=== PATIENT | female | born 1955 | race Caucasian/White ===

== ENCOUNTER 2017-03-29 12:47 | Outpatient (CLI) | payer OTHER ==
--- NOTE | 2017-03-29 15:43 | Diagnostic Imaging Report ---
BERNADETTE UNDERWOOD [facility] [address] [address] Report Submission Date: Mar 29, 2017 2:06:06 PM CDT Patient Study Name: FELECIA AUGUSTIN Date: Mar 29, 2017 12:55:17 PM CDT Modality Type: CR Gender: F Description: SPINE : 51 Institution: [facility] Physician: BERNADETTE UNDERWOOD Examination: Plain film thoracic spine History: Back discomfort Findings: 3 views of the thoracic spine demonstrate normal height. Disc space narrowing involving the mid thoracic region associated with mild kyphosis and curvature. No compression deformity. No prevertebral abnormality. Impression: Mid thoracic degenerative changes. No compression deformity. Electronically signed on Mar 29, 2017 2:06:06 PM CDT by: Bryon TYSON
--- NOTE | 2017-03-29 15:44 | Diagnostic Imaging Report ---
BERNADETTE UNDERWOOD [facility] [address] [facility].[address] [address] Report Submission Date: Mar 29, 2017 2:04:27 PM CDT Patient Study Name: FELECIA AUGUSTIN Date: Mar 29, 2017 12:58:40 PM CDT Modality Type: CR Gender: F Description: SPINE : 51 Institution: [facility] Physician: BERNADETTE UNDERWOOD Examination: Plain film lumbar spine History: Back discomfort Comparison exam: 13 April 2010 Findings: 3 views of the lumbar spine demonstrate normal height and alignment. No anterior compression. Minimal curvature to the right on the anterior posterior film. No disc space narrowing. Minimal atherosclerotic disease involving the aorta and iliac vessels. Impression: Minimal degenerative changes. No fracture. Electronically signed on Mar 29, 2017 2:04:27 PM CDT by: Bryon TYSON
== END 2017-03-29 12:50 ==
LOC: RAD 12:47
PROVIDERS: ATTEND Family Medicine
DX: M54.6 Pain in thoracic spine (principal); M54.5 Low back pain
CPT/HCPCS: 72072; 72100

== ENCOUNTER 2018-01-07 13:25 | Outpatient (CLI) | payer OTHER ==
[2018-01-07 13:42] LABS: BASOPHILS % 0.6 (0.0-1.5); EOSINOPHILS % 1.8 % (0.0-6.8); MEAN CORPUSCULAR HEMOGLOBIN 33.1 pg (28.0-34.0); MEAN CORPUSCULAR VOLUME 99.5 fl (80.0-100.0); MONOCYTES % 5.8 % (0.0-11.0); NEUTROPHILS # 5.7 # k/uL (1.4-7.7)
[2018-01-07 14:03] LABS: eGFR (African) > 60; eGFR (Non-African) > 60
[2018-01-08 11:23] VITALS: BP 127/53
== END 2018-01-07 13:26 ==
LOC: LAB 13:25
PROVIDERS: ATTEND Family Medicine
DX: R11.2 Nausea with vomiting, unspecified (principal); R19.7 Diarrhea, unspecified
CPT/HCPCS: 36415; 80053; 85025

== ENCOUNTER 2018-01-08 10:00 | Outpatient (CLI) | payer OTHER ==
[2018-01-08] MEDS: 0.9 % SODIUM CHLORIDE 1,000 ML IV ONE ×2 (10:12→10:23)
[2018-01-08 11:23] VITALS: BP 127/53
== END 2018-01-08 10:02 ==
LOC: INF 10:00
PROVIDERS: ATTEND Family Medicine
DX: E86.0 Dehydration (principal); R11.2 Nausea with vomiting, unspecified; R19.7 Diarrhea, unspecified
CPT/HCPCS: 96360; J7030; S1016

== ENCOUNTER 2018-11-12 12:51 | Outpatient (CLI) | payer OTHER | END 2018-11-12 12:53 | LOC: RT 12:51 | PROVIDERS: ATTEND Family Medicine | DX: I49.9 Cardiac arrhythmia, unspecified (principal) | CPT/HCPCS: 93270 ==